=== PATIENT | male | born 1970 | race Caucasian/White ===

== ENCOUNTER 2017-08-23 13:53 | Emergency (ER) | payer SELFPAY ==
--- NOTE | 2017-08-23 16:14 | RAD ---
EXAM: CHEST 2 VIEWS: History Cough. COMPARISON: 05/06/15. FINDINGS: Normal cardiac silhouette. The pulmonary vessels and hilum are normal. No consolidation or mass. N o pneumothorax or osseous abnormalities. IMPRESSION: No acute cardiopulmonary process. POS: [facility]
[2017-08-23] MEDS ORDERED: Promethazine HCl 25 MG/ML VIAL ONE (16:33)
[2017-08-23] MEDS ORDERED: diphenhydrAMINE 50 MG/ML VIAL ONE (16:33)
[2017-08-23] MEDS ORDERED: Ketorolac Tromethamine 30 MG/ML VIAL ONE (17:08)
== END 2017-08-23 19:07 | disposition home or self-care (01) ==
LOC: ERS 13:53
DX: J40 Bronchitis, not specified as acute or chronic (principal); F17.210 Nicotine dependence, cigarettes, uncomplicated; F20.9 Schizophrenia, unspecified; F41.9 Anxiety disorder, unspecified; F31.9 Bipolar disorder, unspecified; G43.909 Migraine, unspecified, not intractable, without status migrainosus; I10 Essential (primary) hypertension; Z79.899 Other long term (current) drug therapy; Z86.73 Personal history of transient ischemic attack (TIA), and cerebral infarction without residual deficits
CPT/HCPCS: 71020; 96365; 96375; 99406; J1200; J1885; J2550

== ENCOUNTER 2017-10-22 00:57 | Emergency (ER) | payer SELFPAY ==
[2017-10-22 02:02] LABS: #Basophils 0.1 thou/uL (0.0-0.2); #Eosinphils 0.1 thou/uL (0.0-0.7); #Lymphocytes 2.7 thou/uL (1.20-3.40); #Monocytes 0.6 thou/uL (0.11-0.59); %Basophils 1.4 % (0.0-1.0); %Monocytes 7.8 % (0.0-10.0); %Neutrophils 53.8 % (42.0-75.0); Hemoglobin 13.5 g/dL (14.0-18.0); Mean Corpuscular HGB CONC 34.6 g/dL (32.0-36.0); Mean Corpuscular Hemoglobin 34.6 pg (27.0-31.0); Mean Corpuscular Volume 99.9 fl (80.0-94.0); Mean Platelet Volume 6.5 fL (7.4-10.4); Platelet Count 316 thou/uL (130-400); RBC Distribution Width 14.5 % (11.5-14.5); White Blood Cell (WBC) Count 7.5 thou/uL (4.8-10.8)
[2017-10-22 02:17] LABS: ALT (SGPT) 20 U/L (8-55); AST (SGOT) 15 U/L (5-34); Albumin 4.4 g/dL (3.5-5.0); Alkaline Phosphatase 103 U/L (40-150); Anion Gap 13 mmol/L (10-20); BUN (Urea Nitrogen) 8 mg/dL (8.9-20.6); Bilirubin, Total 0.2 mg/dL (0.2-1.2); Calc. Creatinine Clearance 0 mL/min (70-130); Calcium 9.5 mg/dL (7.8-10.44); Carbon Dioxide 26 mmol/L (22-29); Chloride 102 mmol/L (98-107); Estimated GFR-MDRD Greater than 90; Globulin 2.9 g/dL (2.4-3.5); Glucose 98 mg/dL (70-105); Potassium 3.7 mmol/L (3.5-5.1); Protein, Total 7.3 g/dL (6.0-8.3); Sodium 137 mmol/L (136-145)
[2017-10-22] MEDS ORDERED: Ketorolac Tromethamine 30 MG/ML VIAL ONE (04:24)
[2017-10-22] MEDS ORDERED: Dexamethasone 10 MG/ML VIAL ONE (04:24)
[2017-10-22] MEDS ORDERED: Metoclopramide HCl 10 MG/2 ML VIAL ONE (04:24)
--- NOTE | 2017-10-22 07:32 | CT ---
PRELIMINARY REPORT/[facility]/EMERGENCY AFTER HOURS PROCEDURE: EXAM: CT Head Without Intravenous Contrast CLINICAL HISTORY: 47 years old, male; Pain; Headache; Headache not specified; Patient HX: FELIX, non trauma TECHNIQUE: Axial computed tomography images of the head/brain without intravenous contrast. COMPARISON: No relevant prior studies available. FINDINGS: Brain: Mild volume loss No hemorrhage. No significant white matter disease. No edema. Ventricles: Unremarkable. No ventriculomegaly. Bones/joints: Unremarkable. No acute fracture. Soft tissues: Unremarkable. Sinuses: Unremarkable as visualized. No acute sinusitis. Mastoid air cells: Unremarkable as visualized. No mastoid effusion. IMPRESSION: No intracranial hemorrhage.Please see discussion above. Thank you for allowing us to participate in the care of your patient. Dictated and Authenticated by: Yair Cameron MD 10/22/2017 4:55 AM Central Time ([place] & [place]) FINAL REPORT EMERGENT AFTER HOURS CT OF THE BRAIN WITHOUT CONTRAST: COMPARISON: 02/13/17. FINDINGS/IMPRESSION: I agree with the findings and impression given in the preliminary report per [facility] physician. No evidence of acute intracranial abnormality. POS: [facility]
== END 2017-10-22 05:24 | disposition home or self-care (01) ==
LOC: ERS 00:57
DX: G43.909 Migraine, unspecified, not intractable, without status migrainosus (principal); I10 Essential (primary) hypertension; F41.9 Anxiety disorder, unspecified; F31.9 Bipolar disorder, unspecified; F20.9 Schizophrenia, unspecified; Z86.73 Personal history of transient ischemic attack (TIA), and cerebral infarction without residual deficits
CPT/HCPCS: 36415; 70450; 80053; 85025; 96374; 96375; J1100; J1885; J2765

== ENCOUNTER 2018-06-20 15:37 | Emergency (ER) | payer OTHER, SELFPAY ==
--- NOTE | 2018-06-20 16:21 | RAD ---
RIGHT KNEE 4 VIEWS: Date: 06/20/18 HISTORY: Fell with knee pain. FINDINGS: There are no signs of fracture or dislocation. No evidence of any significant joint effusion. If inte rnal derangement is clinically suspected, MRI would be recommended. Vascular calcifications are seen. IMPRESSION: No definite acute injury. POS: [facility]
[2018-06-20] MEDS ORDERED: Acetaminophen/Codeine 30-300mg Tablet ONE (17:31)
== END 2018-06-20 17:35 | disposition home or self-care (01) ==
LOC: ERS 15:37
DX: S83.91XA Sprain of unspecified site of right knee, initial encounter (principal); F31.9 Bipolar disorder, unspecified; F17.210 Nicotine dependence, cigarettes, uncomplicated; F20.9 Schizophrenia, unspecified; F41.9 Anxiety disorder, unspecified; I10 Essential (primary) hypertension; G43.909 Migraine, unspecified, not intractable, without status migrainosus; Z86.73 Personal history of transient ischemic attack (TIA), and cerebral infarction without residual deficits; Z79.899 Other long term (current) drug therapy; Z71.6 Tobacco abuse counseling; W01.0XXA Fall on same level from slipping, tripping and stumbling without subsequent striking against object, initial encounter

== ENCOUNTER 2019-05-17 12:22 | Observation (INO) | payer SELFPAY ==
[2019-05-17] MEDS ORDERED: methylPREDNISolone Sod Succ/PF 125 MG/2 ML VIAL ONE (12:31)
[2019-05-17] MEDS ORDERED: Famotidine/PF 20 mg/2ml Vial ONE (12:31)
[2019-05-17] MEDS ORDERED: diphenhydrAMINE 50 MG/ML VIAL ONE (12:31)
--- NOTE | 2019-05-17 12:49 | CT ---
CT HEAD WITHOUT IV CONTRAST COMPARISON: 10/22/2017 HISTORY: History of prior CVA as well as TIAs. Patient now has slurred speech and numbness. TECHNIQUE: Axial CT imaging at 5 mm intervals from vertex through skull base without contrast FINDINGS: Again noted is diminished attenuation in the periventricular white matter likely attributable to tubing mill setter moises small vessel ischemic changes which have not progressed from prior exam. There is no evidence of an acute infarction, hemorrhage, mass effect, or midline shift. The ventricular system is normal i n size, shape, and position. Visualized paranasal sinuses are clear. Osseous structures appear intact. There has been no interval change from prior exam. IMPRESSION: 1. No acute intracranial abnormality demonstrated. 2. Mild chronic small vessel ischemic changes. 3. Above findings discussed with Dr. Najera in the emergency department on 05/17/2019 at 1246 hours.
[2019-05-17 13:20] LABS: Mean Corpuscular HGB CONC 33.6 g/dL (32.0-36.0); Mean Corpuscular Volume 95.1 fL (78.0-98.0); Mean Platelet Volume 7.1 fL (7.4-10.4); Platelet Count 276 thou/uL (130-400); RBC Distribution Width 12.6 % (11.5-14.5); Red Blood Cell (RBC) Count 4.37 mill/uL (4.70-6.10); White Blood Cell (WBC) Count 4.6 thou/uL (4.8-10.8)
[2019-05-17 13:25] LABS: INR-International Normal Ratio 0.9; Prothrombin Time 12.1 SEC (12.0-14.7)
[2019-05-17 13:37] LABS: Acetaminophen Less than 6.0 mcg/mL (10.0-30.0); Alcohol Less than 10 mg/dL (Less than 10); Salicylate Less than 8.0 mg/dL (15.0-30.0)
[2019-05-17 13:39] LABS: Amphetamine Not Detected (NotDetected); Barbiturates Screen Not Detected (NotDetected); Benzodiazepine Screen Not Detected (NotDetected); Cocaine Metabolite Screen Not Detected (NotDetected); Medtox Control Line Valid? VALID (VALID); Medtox Reader # READER 1; Methadone Not Detected (NotDetected); Methamphetamine Not Detected (NotDetected); Opiate Screen Not Detected (NotDetected); Oxycodone Screen Not Detected (NotDetected); Phencyclidine (PCP) Not Detected (NotDetected); THC/Cannabinoid Screen Not Detected (NotDetected); Tricyclic Screen Not Detected (NotDetected)
[2019-05-17 13:39] LABS: ALT (SGPT) 14 U/L (8-55); AST (SGOT) 16 U/L (5-34); Albumin 4.6 g/dL (3.5-5.0); Alkaline Phosphatase 114 U/L (40-150); Anion Gap 15 mmol/L (10-20); BUN (Urea Nitrogen) 11 mg/dL (8.9-20.6); Bilirubin, Total 0.2 mg/dL (0.2-1.2); CK (CPK) 59 U/L (30-200); Calc. Creatinine Clearance 0 mL/min (70-130); Calcium 9.6 mg/dL (7.8-10.44); Carbon Dioxide 26 mmol/L (22-29); Chloride 97 mmol/L (98-107); Estimated GFR-MDRD 84; Glucose 81 mg/dL (70-105); Potassium 4.5 mmol/L (3.5-5.1); Protein, Total 7.6 g/dL (6.0-8.3); Sodium 133 mmol/L (136-145)
[2019-05-17 13:52] LABS: Band 3 % (5-11); Eosinophils 1 % (0-10); Lymphocytes 39 % (21-51); MDiff Complete? YES; Monocytes 6 % (0-10); Neutrophil 45 % (42-75); Platelet Morphology Comment Appears Adequate; Polychromasia SLIGHT = 2-3 cells (100X) (0-2/hpf); Reactive Lymphocytes 3 % (0-10)
[2019-05-17] MEDS ORDERED: cloNIDine 0.1 MG TAB ONE (14:06)
[2019-05-17] MEDS ORDERED: Metoclopramide HCl 10 MG/2 ML VIAL ONE (14:06)
[2019-05-17] MEDS ORDERED: Ketorolac Tromethamine 30 MG/ML VIAL ONE (14:06)
--- NOTE | 2019-05-17 14:38 | RAD ---
PORTABLE CHEST: HISTORY: Altered mental status, syncope. COMPARISON: 02/27/2015 study. FINDINGS: Heart size within normal limits considering the AP technique. Mediastinal structures are unremarkabl e. The lungs are clear of infiltrates. IMPRESSION: No active intrathoracic disease. POS: [facility]
--- NOTE | 2019-05-17 14:53 | CT ---
CT ANGIOGRAM BRAIN WITH AND WITHOUT IV CONTRAST AND 3D RECONSTRUCTIONS CT ANGIOGRAM NECK WITH IV CONTRAST AND 3D RECONSTRUCTIONS: HISTORY: Level II stroke activation. Patient with left-sided deficits including slurred speech and numbness. COMPARISON: CTA neck on 02/15/2017. FINDINGS: Minimal vascular calcifications are seen at the aortic arch. There is a normal arrangement of the gr eat vessels at the aortic arch which are patent. The bilateral common carotid arteries are patent. There are dense vascular calcifications present at the carotid artery bifurcations bilaterally. Dens e calcifications obscure the lumen involving the proximal left internal carotid artery, but there is focal stenosis of the right internal carotid artery which does appear progressed when compared to the prior study with the degree of narrowing appearing to be greater than 50%. There is also probably a t least 50% narrowing involving the proximal left internal carotid artery, but again a portion of the lumen is obscured due to dense vascular calcifications. There are patent bilateral vertebral arteries. The basilar artery is patent. Bilateral posterior cerebral arteries are also patent. Vascular calcifications are seen at the carotid siphons. The bilateral middle cerebral and anterior cerebral arteries are patent. No focal stenosis or branch occlusion is visualized. There is a small sacular aneurysm seen at the ACOM position on the left me asuring approximately 3 mm. IMPRESSION: 1. 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 2. Atherosclerotic plaque and calcifications at the carotid artery bifurcations and involving the pr oximal internal carotid arteries bilaterally with at least 50% narrowing present involving each proxi mal internal carotid artery. 3. Patent bilateral vertebral arteries. 4. The above findings were discussed with Dr. Najera in the emergency department on 05/17/2019 at 13 47 hours. POS: [facility]
[2019-05-17] MEDS ORDERED: Aspirin Chewable 81 MG TAB ONE (15:40)
[2019-05-17] MEDS ORDERED: Ondansetron ODT 4 MG TAB SL PRN (16:00)
[2019-05-17] MEDS ORDERED: Ondansetron PF 4 MG/2 ML Vial IVP PRN (16:00)
[2019-05-17] MEDS ORDERED: Acetaminophen 325 MG TAB PO PRN (16:00)
[2019-05-17] MEDS ORDERED: ISOVUE-370 76%-LOCM 1 ML ONE (16:33)
[2019-05-17 17:25] LABS: Lactic Acid 4.3 mmol/L (0.5-2.2)
[2019-05-17] MEDS: Sodium Chloride 0.9% 1,000 ML IV SCH (18:36)
--- NOTE | 2019-05-17 19:34 | HP ---
PRIMARY CARE PHYSICIAN: Maria E Tidwell PA-C and Ben Sinha MD. CHIEF COMPLAINT: Expressive aphasia and left-sided weakness. HISTORY OF PRESENT ILLNESS: A 48-year-old male patient with known history of prior CVAs with residual left-sided footdrop and numbness of distal limbs, bilateral carotid atherosclerosis, and hypertension, brought in by EMS due to acute onset of expressive aphasia associated with left-sided limb weakness and decreased sensation. The patient reportedly woke up today fine and had some coffee, following which, he reportedly developed acute onset of ill feeling associated with expressive aphasia, stuttering, and left-sided limb weakness as well as numbness and tingling from neck down. He also reported some spinning sensation and generalized ill feeling. This started around 10:30 a.m. and EMS was called. The patient was treated with sublingual nitroglycerin by EMS as he was found to have markedly elevated blood pressure with systolic blood pressure above 200. On arrival to the ER, blood pressure was down to 172 systolic. The patient soon reported improvement of both slurred speech, stuttering, and numbness. By the time, the patient presented to the floor, he reported that he is back to baseline. He admitted to some nausea, which however had some chronic component. He also admitted to distal left lower extremity from knee down and distal upper limb from an elbow down numbness. The patient with prior history of substance abuse. Denied recreational drug use. He also denied chest pain or shortness of breath. In the ER, the patient also received aspirin 324 mg, clonidine 0.2 mg, ketorolac injection, Reglan, and prednisone as well as Pepcid and diphenhydramine. He also reported difficulty urinating and admitted to hesitancy, intermittency, dribbling, and poor stream. Of note, the patient had Mcdonough catheter placement during prior hospitalization. The patient told ER physician that he had headache last night, but this was not expressed to me. He also told the EMS that he had bilateral weakness in his upper limbs, but he told me that the power in the right side of the body was normal and stayed normal through this episode. PAST MEDICAL HISTORY: 1. Prior CVA with residual left-sided footdrop. 2. Carotid atherosclerosis bilaterally. 3. Bipolar disorder. 4. History of drug abuse. 5. Migraine headaches. 6. Dyslipidemia. 7. Hypertension. 8. Tobacco abuse disorder. PAST SURGICAL HISTORY: 1. Appendectomy. 2. Eye surgery. 3. Psychiatric history. 4. Anxiety. 5. Bipolar disorder. 6. Depression. 7. schizoaffective disorder. FAMILY HISTORY: Significant for stroke in mother, who has had 2 strokes. Father from Hodgkin lymphoma. SOCIAL HISTORY: The patient lives with mother. Admitted to cigarette smoking, told me he smokes 1-1/2 packs per day. Review of history showed the patient used to smoke 2 to 3 packs for several years. He is a former drug user, using amphetamine and heroin, but denied current use. ALLERGIES: THE PATIENT REPORTS ALLERGY AND INTOLERANCE TO THE FOLLOWING; 1. ERYTHROMYCIN. 2. FISH PRODUCTS. 3. FISH OIL. 4. IODINE. 5. PENICILLIN. 6. SULFA. 7. TETRACYCLINE. HOME MEDICATIONS: This has not been verified, but review of the records showed the patient is on; 1. Tegretol 200 mg p.o. daily. 2. Depakote 500 mg t.i.d. 3. Lisinopril 10 mg p.o. b.i.d. 4. Remeron 30 mg p.o. daily at bedtime. 5. Pentazocine/naloxone one tablet daily. 6. Aspirin-dipyridamole (Aggrenox 1 capsule p.o. b.i.d.). 7. Lipitor 40 mg p.o. daily at bedtime. 8. Meclizine 12.5 mg p.o. b.i.d. p.r.n. for vertigo. REVIEW OF SYSTEMS: Twelve-point review of system performed was negative other than pertinent positives and negatives included in the history of present illness. PHYSICAL EXAMINATION: VITAL SIGNS: Initial vitals on presentation to the ER showed BP of 172/122, pulse 90, respiratory rate 20, temperature 97.8, SpO2 96% on room air. Most recent vitals showed BP 139/91, SpO2 97% on room air respiratory rate 18. GENERAL: Young male, in no obvious distress. Afebrile. Anicteric. Acyanotic. HEENT: Normocephalic, atraumatic. Pupils are reacting to light. Oral mucosa is moist. NECK: Full, soft, nontender, nondistended with full range of motion. No masses appreciated. CARDIOVASCULAR: Regular rhythm and rate. Normal heart sounds one and two. RESPIRATORY: Good air entry bilateral with few transmitted sounds. No obvious crackle or use of accessory muscles appreciated. GI: Full, soft, nontender, nondistended with normal bowel sounds. EXTREMITIES: Grossly normal looking, atraumatic with no edema, erythema, or cyanosis. Distal pulses are palpable. NEUROLOGIC: Conscious, alert, oriented x3 with appropriate mental status. The patient is conversational with good train of thought. No slurred speech or stuttering was appreciated. Cranial nerves 2 through 12 are grossly intact. The patient moves all extremities with. Power however is decreased on the left side to 4/5 while power is 5/5 on the right side. Left footdrop also is noted. Sensation to gross touch is normal on the right side, but subjectively decreased on the distal aspect of both upper and lower extremities. Sensation is grossly intact on the face. DIAGNOSTIC DATA: CBC showed WBC count of 4.6, hemoglobin of 14.0, MCV of 95.1, and platelet of 276. Coagulation panel showed PT 12.1, INR 0.9, PTT 25. CMP showed sodium 133, potassium 4.5, chloride 97, CO2 26, BUN 11, creatinine 0.9, glucose 81, calcium 9.6, total bilirubin 0.2, AST 16, ALT 14, alkaline phosphatase 114, total protein 7.6, albumin 4.6, globulin 3.0. Cardiac markers showed troponin less than 0.01 and CK 59. Lactic acid initially was 3.0, but repeat 3 hours later was 4.3. Toxicology screen showed less than 8.0 salicylate, less than 6.0 acetaminophen, and less than 10 alcohol. Urine drug screen was unremarkable. Negative for opioids, methamphetamine, and heroin. EKG showed normal sinus rhythm with rate of 89. No obvious acute ischemic changes noted. CT scan of the brain showed no acute intracranial abnormality. However, mild chronic small-vessel ischemic changes were noted. CT angio of the head and neck showed small anterior communicating artery aneurysm on the left measuring 3 mm. The atherosclerotic plaque and calcification at the carotid artery bifurcation and involving the proximal internal carotid arteries bilaterally with at least 50% narrowing present involving each proximal internal carotid arteries. Both vertebral arteries are patent. Chest x-ray showed normal heart size with unremarkable mediastinal structures. Lungs are clear of infiltrates. ASSESSMENT: 1. Transient ischemic attack: The patient with prior history of cerebrovascular accident and significant bilateral carotid atherosclerosis, had acute onset of left-sided weakness, stuttering, expressive aphasia, and numbness, which has improved and the patient reports he is back to baseline currently. Evaluation with CT scan of the brain as well as CT angio showed no acute finding, though, significant bilateral hemodynamically significant carotid atherosclerosis noted. 2. Hypertension. 3. Tobacco abuse disorder. 4. Prior cerebrovascular accident with residual left-sided weakness and sensory loss. 5. Left footdrop. 6. Lactic acidosis: Etiology is unclear. Dehydration is a concern given associated hyponatremia and mild elevation in creatinine compared to baseline. 7. Presumed dehydration. PLAN: 1. Admit the patient to stroke floor. Start neuro checks as per protocol. 2. Start normal saline at 100 mL/hour. 3. Recheck lactic acid in 4 hours with IV fluid therapy. 4. Follow serial troponin to rule out acute myocardial infarction. 5. PT/OT and Speech to evaluate and treat. 6. We will also get echocardiogram of the heart to assess cardiac function and to rule out any clot. 7. Diet as tolerated. 8. It is anticipated that the patient will be hospitalized for less than 2 midnights. Code status' full code. The patient's mother is the surrogate decision maker. Job ID: [id number]
[2019-05-17 20:52] VITALS: BMI 26.3
[2019-05-17] MEDS ORDERED: Tamsulosin HCl 0.4 MG CAP PO SCH (21:00)
[2019-05-17] MEDS ORDERED: Atorvastatin Calcium 40 MG TAB PO SCH (21:00)
[2019-05-17 23:09] LABS: Lactic Acid 2.9 mmol/L (0.5-2.2)
[2019-05-17 23:17] LABS: Troponin I Less than 0.010 ng/mL (< 0.028)
[2019-05-18] MEDS: Sodium Chloride 0.9% 1,000 ML IV SCH ×2 (05:02→13:28)
--- NOTE | 2019-05-18 05:15 | PDOC.EVN ---
Event Note - Event Note Event Note: RN called - Patient is refusing labs this AM
[2019-05-18] MEDS ORDERED: Clopidogrel Bisulfate 75 MG TAB PO SCH (09:00)
[2019-05-18] MEDS ORDERED: Nicotine 21 MG PATCH TD SCH (09:00)
[2019-05-18] MEDS ORDERED: Enoxaparin Sodium 40 MG/0.4 ML SYRINGE SC SCH (09:00)
[2019-05-18] MEDS ORDERED: Aspirin 325 mg Enteric Coated Tablet PO SCH (09:00)
[2019-05-18 09:03] LABS: Bacteria/HPF None Seen HPF (None Seen); Bilirubin Negative (Negative); Blood, Urine Negative (Negative); Clarity Clear (Clear); Glucose, Urine (Dipstick) Normal (Negative); Leukocyte Negative Leu/uL (Negative); Nitrite Negative (Negative); Protein, Urine (Dipstick) Negative (Neg-Trace); RBC/HPF 0-3 HPF (0-3); Squamous Epithelial None Seen HPF (0-3); Urobilinogen Normal mg/dL (Less than 2); WBC/HPF 0-3 HPF (0-3)
[2019-05-18 09:04] LABS: Anion Gap 13 mmol/L (10-20); BUN (Urea Nitrogen) 12 mg/dL (8.9-20.6); Calc. Creatinine Clearance 139 mL/min (70-130); Calcium 8.1 mg/dL (7.8-10.44); Carbon Dioxide 23 mmol/L (22-29); Cardiac Risk 5.7 (Less than 4.5); Chloride 99 mmol/L (98-107); Cholesterol 251 mg/dl (< 200 Desired); Estimated GFR-MDRD Greater than 90; Glucose 127 mg/dL (70-105); HDL Cholesterol 44 mg/dL (>60 Neg Risk); LDL Cholesterol, Calculated 159 mg/dL; Potassium 3.5 mmol/L (3.5-5.1); Sodium 131 mmol/L (136-145); Triglycerides 242 mg/dL (Less than 150)
[2019-05-18 09:04] LABS: Urine Culture Reflex No No
[2019-05-18 15:29] VITALS: BP 149/84; TEMP 98.3
--- NOTE | 2019-05-20 15:28 | DIS ---
DATE OF ADMISSION: 05/17/2019 DATE OF DISCHARGE: 05/18/2019 PRIMARY CARE PHYSICIAN: Maria E Tidwell PA-C DISCHARGE DIAGNOSES: 1. Transient ischemic attack. 2. Hypertension. 3. Tobacco abuse disorder. 4. Polysubstance abuse, on treatment. 5. Prior cerebrovascular accident with residual left-sided weakness. 6. Chronic left footdrop. 7. Lactic acidosis. HOSPITAL COURSE: A 48-year-old male patient with known history of prior CVA with residual left-sided weakness and footdrop, known history of bilateral carotid atherosclerosis and hypertension, admitted due to acute onset of expressive aphasia associated with left-sided limb weakness and decreased sensation. The patient was found to be hypertensive on presentation to the ER and was treated with sublingual nitroglycerin with improvement in blood pressure. Soon, expressive aphasia and left-sided weakness started to improve such that by the time I saw the patient, he was almost 80% back to normal. The patient was admitted to the medical floor, to the stroke unit and monitored with neuro checks and by the following morning, mental status and neurological examination have resolved and the patient was back to baseline. There was a concern about aortic aneurysm and the patient was evaluated with CT angio of the head and neck as well as CT scan of the brain, which were all unremarkable. The patient however was found to have elevated lactic acid of 3.0 on presentation, which increased to 4.3, three hours later. Initially, this was felt to be due to dehydration, then with IV fluid therapy the lactic went down to 3.0. On further questioning, it turned out that the patient is on some medications, pentazocine, naloxone, Tegretol, and Depakote, which all can lead to lactic acidosis. The patient remained at baseline with no symptoms and was subsequently discharged. Echocardiogram was obtained, but preliminary reading of it was unremarkable and the patient was advised to follow up with PCP as well as with vascular surgeon for further evaluation of bilateral carotid atherosclerosis. PHYSICAL EXAMINATION: VITAL SIGNS: Temperature 98.3, pulse 98, respiratory rate 18, SpO2 of 98 on room air, and blood pressure is 149/84. GENERAL: Young male, in no distress. Afebrile. Anicteric. Acyanotic. HEENT: Normocephalic and atraumatic. Oral mucosa is moist. CARDIOVASCULAR: Regular rhythm and rate with normal heart sounds 1 and 2. RESPIRATORY: Good air entry bilaterally with some transmitted sounds. No obvious crackle or rhonchi was appreciated. GI: Full, soft, nontender, and nondistended with normal bowel sounds. EXTREMITIES: Grossly normal looking, atraumatic with no edema, erythema, or cyanosis. NEUROLOGIC: Conscious and alert and oriented x3 with appropriate mental status. Cranial nerves 2 through 12 are grossly intact. The patient is ambulant with left footdrop gait. Power is 5/5 in right limbs and 5-/5 left limbs. DISCHARGE DISPOSITION: Home. DISCHARGE CONDITION: Improved to baseline. DISCHARGE MEDICATIONS: See discharge med rec. Job ID: [id number]
--- NOTE | 2019-05-25 11:26 | EKG ---
Test Reason : STROKE ALERT Blood Pressure : / mmHG Vent. Rate : 089 BPM Atrial Rate : 089 BPM P-R Int : 138 ms QRS Dur : 104 ms QT Int : 390 ms P-R-T Axes : 003 -01 024 degrees QTc Int : 474 ms Normal sinus rhythm Inferior infarct , age undetermined Abnormal ECG Confirmed by ALPHONSO FARRELL D.O. ([id number]), commissioning editor YENI QUINTEROS ([id number]) on 05/25/2019 11:26:35 AM Referred By: Confirmed By:ALPHONSO FARRELL D.O.
== END 2019-05-18 17:27 | disposition home or self-care (01) ==
LOC: ERS 12:22 → 2SE 14:08
PROVIDERS: ADMIT Internal Medicine Nephrology; ATTEND Internal Medicine Nephrology
DX: G45.9 Transient cerebral ischemic attack, unspecified (principal); I10 Essential (primary) hypertension; I69.954 Hemiplegia and hemiparesis following unspecified cerebrovascular disease affecting left non-dominant side; E87.2 Acidosis; E78.5 Hyperlipidemia, unspecified; F31.9 Bipolar disorder, unspecified; F17.210 Nicotine dependence, cigarettes, uncomplicated; G43.709 Chronic migraine without aura, not intractable, without status migrainosus; Z88.0 Allergy status to penicillin; Z88.1 Allergy status to other antibiotic agents; Z88.2 Allergy status to sulfonamides; Z88.8 Allergy status to other drugs, medicaments and biological substances; Z91.013 Allergy to seafood; Z91.041 Radiographic dye allergy status; Z79.82 Long term (current) use of aspirin; Z79.899 Other long term (current) drug therapy
CPT/HCPCS: 36415; 36416; 70450; 70496; 70498; 71045; 80048; 80053; 80061; 80306; 80307; 81001; 82550; 83605; 84484; 85025; 85610; 85730; 93005; 93306; 96361; 96372; 96374; 96375; G0378; J1200; J1650; J1885; J2765; J2930; Q9966; S0028

== ENCOUNTER 2020-04-29 13:35 | Emergency (ER) | payer SELFPAY ==
[2020-04-29] MEDS ORDERED: Ondansetron PF 4 MG/2 ML Vial ONE (14:12)
[2020-04-29] MEDS ORDERED: Labetalol HCl 100 MG/20 ML VIAL ONE (14:13)
--- NOTE | 2020-04-29 14:13 | CT ---
CT Brain WO Con: 04/29/2020 1:58 PM CLINICAL HISTORY: Syncopal episode. IMAGING TECHNIQUE: Multiple CT images were obtained of the brain without IV contrast. COMPARISON: Prior exam dated May 17, 2019 FINDINGS: BRAIN: Evidence of acute infarct: None. Evidence of chronic ischemic change:There is stable mild chronic small vessel white matter ischemic c hange. Evidence of intracranial hemorrhage: None. Evidence of midline shift: Third ventricle and septum pellucidum are midline. Ventricles: Normal. No hydrocephalus. SKULL: Intact. VISUALIZED PARANASAL SINUSES: Clear. MASTOID AIR CELLS: Clear. EXTRACRANIAL SOFT TISSUES: Normal. IMPRESSION: No acute intracranial abnormality.
[2020-04-29 14:19] LABS: #Basophils 0.1 thou/uL (0.0-0.2); #Eosinphils 0.1 thou/uL (0.0-0.7); #Lymphocytes 1.8 thou/uL (1.20-3.40); #Monocytes 0.4 thou/uL (0.11-0.59); #Neutrophils 3.1 thou/uL (1.40-6.50); %Lymphocytes 33.3 % (21.0-51.0); %Monocytes 7.2 % (0.0-10.0); %Neutrophils 57.5 % (42.0-75.0); Hemoglobin 13.5 g/dL (14.0-18.0); Mean Corpuscular HGB CONC 34.8 g/dL (32.0-36.0); Mean Corpuscular Hemoglobin 33.4 pg (27.0-31.0); Mean Corpuscular Volume 96.1 fL (78.0-98.0); Mean Platelet Volume 6.9 fL (7.4-10.4); Platelet Count 290 thou/uL (130-400); RBC Distribution Width 12.9 % (11.5-14.5); Red Blood Cell (RBC) Count 4.05 mill/uL (4.70-6.10); White Blood Cell (WBC) Count 5.4 thou/uL (4.8-10.8)
--- NOTE | 2020-04-29 14:27 | RAD ---
PORTABLE CHEST: Date: 04/29/2020 HISTORY: Syncope. COMPARISON: 05/17/2019. FINDINGS: The lungs appear clear of infiltrate. No evidence of vascular congestion. Heart and mediastinum unrem arkable. IMPRESSION: No acute process identified. POS: [facility]
[2020-04-29 14:44] LABS: Alcohol Less than 10 mg/dL (Less than 10); Salicylate Less than 8.0 mg/dL (15.0-30.0)
[2020-04-29 14:46] LABS: ALT (SGPT) 17 U/L (8-55); AST (SGOT) 12 U/L (5-34); Albumin 4.4 g/dL (3.5-5.0); Alkaline Phosphatase 124 U/L (40-110); Anion Gap 13 mmol/L (10-20); BUN (Urea Nitrogen) 12 mg/dL (8.9-20.6); Bilirubin, Total 0.2 mg/dL (0.2-1.2); Calc. Creatinine Clearance 0 mL/min (70-130); Calcium 8.9 mg/dL (7.8-10.44); Carbon Dioxide 28 mmol/L (22-29); Chloride 101 mmol/L (98-107); Estimated GFR-MDRD Greater than 90; Globulin 2.9 g/dL (2.4-3.5); Glucose 84 mg/dL (70-105); Potassium 3.7 mmol/L (3.5-5.1); Protein, Total 7.3 g/dL (6.0-8.3); Sodium 138 mmol/L (136-145)
[2020-04-29 14:50] LABS: Bilirubin Negative (Negative); Blood, Urine Negative (Negative); Clarity Clear (Clear); Glucose, Urine (Dipstick) Normal (Negative); Ketone, Urine Negative (Negative); Leukocyte Negative Leu/uL (Negative); Nitrite Negative (Negative); Protein, Urine (Dipstick) Negative (Neg-Trace); Specific Gravity, Urine 1.025 (1.002-1.036); Urobilinogen Normal mg/dL (Less than 2)
[2020-04-29] MEDS ORDERED: Acetaminophen 500 MG TAB ONE (14:55)
[2020-04-29 15:02] LABS: Amphetamine Not Detected (NotDetected); Barbiturates Screen Not Detected (NotDetected); Benzodiazepine Screen Detected (NotDetected); Cocaine Metabolite Screen Not Detected (NotDetected); Medtox Reader # READER 4; Methadone Not Detected (NotDetected); Methamphetamine Not Detected (NotDetected); Opiate Screen Not Detected (NotDetected); Oxycodone Screen Not Detected (NotDetected); Phencyclidine (PCP) Not Detected (NotDetected); THC/Cannabinoid Screen Not Detected (NotDetected); Tricyclic Screen Not Detected (NotDetected)
[2020-04-29 15:03] LABS: Medtox Control Line Valid? VALID (VALID)
== END 2020-04-29 15:50 | disposition home or self-care (01) ==
LOC: ERS 13:35
DX: R55 Syncope and collapse (principal); I10 Essential (primary) hypertension; F41.9 Anxiety disorder, unspecified; F31.9 Bipolar disorder, unspecified; G43.909 Migraine, unspecified, not intractable, without status migrainosus; F20.9 Schizophrenia, unspecified; F17.210 Nicotine dependence, cigarettes, uncomplicated
CPT/HCPCS: 70450; 71045; 80053; 80306; 80307; 81003; 84484; 85025; 93005; 96361; 96374; 96375; J2405

== ENCOUNTER 2021-01-10 16:14 | Emergency (ER) | payer SELFPAY ==
[2021-01-10 18:29] LABS: #Basophils 0.1 thou/uL (0.0-0.2); #Eosinphils 0.1 thou/uL (0.0-0.7); #Lymphocytes 2.9 thou/uL (1.20-3.40); #Monocytes 0.9 thou/uL (0.11-0.59); #Neutrophils 5.4 thou/uL (1.40-6.50); %Basophils 1.3 % (0.0-1.0); %Eosinophils 0.9 % (0.0-10.0); %Lymphocytes 31.2 % (21.0-51.0); %Monocytes 9.8 % (0.0-10.0); %Neutrophils 56.9 % (42.0-75.0); Hemoglobin 14.1 g/dL (14.0-18.0); Mean Corpuscular HGB CONC 34.4 g/dL (32.0-36.0); Mean Corpuscular Hemoglobin 34.4 pg (27.0-31.0); Mean Platelet Volume 6.5 fL (7.4-10.4); Platelet Count 414 thou/uL (130-400); RBC Distribution Width 12.9 % (11.5-14.5); White Blood Cell (WBC) Count 9.4 thou/uL (4.8-10.8)
[2021-01-10] MEDS ORDERED: Acetaminophen 500 MG TAB ONE (18:31)
[2021-01-10] MEDS ORDERED: diphenhydrAMINE 50 MG/ML VIAL ONE (18:31)
[2021-01-10] MEDS ORDERED: Metoclopramide HCl 10 MG/2 ML VIAL ONE (18:31)
[2021-01-10 18:58] LABS: ALT (SGPT) 34 U/L (8-55); AST (SGOT) 22 U/L (5-34); Albumin 4.3 g/dL (3.5-5.0); Alkaline Phosphatase 115 U/L (40-110); Anion Gap 15 mmol/L (10-20); BUN (Urea Nitrogen) 10 mg/dL (8.9-20.6); Bilirubin, Total 0.2 mg/dL (0.2-1.2); Calc. Creatinine Clearance 0 mL/min (70-130); Calcium 9.2 mg/dL (7.8-10.44); Carbon Dioxide 26 mmol/L (22-29); Chloride 98 mmol/L (98-107); Globulin 3.5 g/dL (2.4-3.5); Glucose 81 mg/dL (70-105); Potassium 4.4 mmol/L (3.5-5.1); Protein, Total 7.8 g/dL (6.0-8.3); Sodium 135 mmol/L (136-145)
[2021-01-10] MEDS ORDERED: methylPREDNISolone Sod Succ/PF 125 MG/2 ML VIAL ONE (20:05)
[2021-01-10] MEDS ORDERED: Magnesium 2 GM/50 ML BAG (IN WATER) ONE (20:05)
== END 2021-01-10 20:46 | disposition home or self-care (01) ==
LOC: ERS 16:14
DX: R51.9 Headache, unspecified (principal); R55 Syncope and collapse; I10 Essential (primary) hypertension; F17.210 Nicotine dependence, cigarettes, uncomplicated; Z86.73 Personal history of transient ischemic attack (TIA), and cerebral infarction without residual deficits; Z79.899 Other long term (current) drug therapy
CPT/HCPCS: 70450; 80053; 84484; 85025; 93005; 96365; 96367; 96375; J1200; J2765; J2930; J3475

== ENCOUNTER 2021-06-30 20:00 | Emergency (ER) | payer SELFPAY ==
[2021-06-30 22:16] LABS: #Basophils 0.1 thou/uL (0.0-0.2); #Eosinphils 0.1 thou/uL (0.0-0.7); #Lymphocytes 2.5 thou/uL (1.20-3.40); #Monocytes 0.7 thou/uL (0.11-0.59); #Neutrophils 4.6 thou/uL (1.40-6.50); %Basophils 1.1 % (0.0-1.0); %Eosinophils 1.7 % (0.0-10.0); %Lymphocytes 30.9 % (21.0-51.0); %Monocytes 9.1 % (0.0-10.0); %Neutrophils 57.2 % (42.0-75.0); Hemoglobin 14.6 g/dL (14.0-18.0); Mean Corpuscular Hemoglobin 34.3 pg (27.0-31.0); Mean Corpuscular Volume 98.1 fL (78.0-98.0); Mean Platelet Volume 7.1 fL (7.4-10.4); Platelet Count 304 thou/uL (130-400); RBC Distribution Width 12.7 % (11.5-14.5); Red Blood Cell (RBC) Count 4.26 mill/uL (4.70-6.10)
[2021-06-30 22:35] LABS: ALT (SGPT) 36 U/L (8-55); AST (SGOT) 24 U/L (5-34); Albumin 4.4 g/dL (3.5-5.0); Alkaline Phosphatase 116 U/L (40-110); Anion Gap 14 mmol/L (10-20); BUN (Urea Nitrogen) 13 mg/dL (8.4-25.7); Bilirubin, Total 0.2 mg/dL (0.2-1.2); Calc. Creatinine Clearance 0 mL/min (70-130); Calcium 9.5 mg/dL (7.8-10.44); Carbon Dioxide 27 mmol/L (22-29); Chloride 100 mmol/L (98-107); Globulin 3.2 g/dL (2.4-3.5); Glucose 88 mg/dL (70-105); Potassium 4.1 mmol/L (3.5-5.1); Protein, Total 7.6 g/dL (6.0-8.3); Sodium 137 mmol/L (136-145)
[2021-06-30] MEDS ORDERED: Ketorolac Tromethamine 30 MG/ML VIAL ONE (23:02)
[2021-06-30] MEDS ORDERED: Promethazine HCl 25 MG/ML VIAL ONE (23:02)
[2021-06-30 23:21] LABS: Bilirubin Negative (Negative); Blood, Urine Negative (Negative); Clarity Clear (Clear); Glucose, Urine (Dipstick) Normal (Negative); Ketone, Urine Negative (Negative); Leukocyte Negative Leu/uL (Negative); Nitrite Negative (Negative); Protein, Urine (Dipstick) Negative (Neg-Trace); Specific Gravity, Urine 1.012 (1.002-1.036); Urobilinogen Normal mg/dL (Less than 2); pH, Urine 6.5 (5.0-9.0)
[2021-06-30 23:39] LABS: SARS-CoV-2 NAA Rapid Test Not Detected (NotDetected)
[2021-07-01] MEDS ORDERED: Acetaminophen 500 MG TAB ONE (00:36)
[2021-07-01] MEDS ORDERED: Metoclopramide HCl 10 MG/2 ML VIAL ONE (00:37)
[2021-07-01] MEDS ORDERED: diphenhydrAMINE 50 MG/ML VIAL ONE (00:37)
== END 2021-07-01 01:10 | disposition home or self-care (01) ==
LOC: ERS 20:00
DX: S39.012A Strain of muscle, fascia and tendon of lower back, initial encounter (principal); G43.909 Migraine, unspecified, not intractable, without status migrainosus; I10 Essential (primary) hypertension; F17.210 Nicotine dependence, cigarettes, uncomplicated; Z86.73 Personal history of transient ischemic attack (TIA), and cerebral infarction without residual deficits; Z79.899 Other long term (current) drug therapy
CPT/HCPCS: 0240U; 36415; 71045; 80053; 81003; 84484; 85025; 93005; 96365; 96375; J1200; J1885; J2550; J2765

== ENCOUNTER 2022-05-30 08:16 | Emergency (ER) | payer OTHER | END 2022-05-30 09:35 | disposition home or self-care (01) | LOC: ERS 08:16 | DX: T23.001A Burn of unspecified degree of right hand, unspecified site, initial encounter (principal); Z86.73 Personal history of transient ischemic attack (TIA), and cerebral infarction without residual deficits; F17.210 Nicotine dependence, cigarettes, uncomplicated; X00.0XXA Exposure to flames in uncontrolled fire in building or structure, initial encounter; Z79.899 Other long term (current) drug therapy | CPT/HCPCS: 99283 ==

== ENCOUNTER 2023-11-01 03:50 | Inpatient (IN) | payer OTHER ==
[2023-11-01] MEDS ORDERED: diphenhydrAMINE 50 MG/ML VIAL ONE (03:55)
[2023-11-01] MEDS ORDERED: methylPREDNISolone Sod Succ 40 MG VIAL ONE (03:55)
[2023-11-01] MEDS ORDERED: Famotidine/PF 20 mg/2ml Vial ONE (03:56)
[2023-11-01] MEDS ORDERED: EPINEPHrine 1 MG/ML VIAL ONE (04:04)
[2023-11-01] MEDS ORDERED: Aspirin Chewable 81 MG TAB ONE (04:37)
[2023-11-01] MEDS ORDERED: Lisinopril 20 MG TAB ONE (04:59)
[2023-11-01 05:16] LABS: #Eosinphils 0.2 thou/uL (0.0-0.7); #Monocytes 0.4 thou/uL (0.11-0.59); %Basophils 0.6 % (0.0-1.0); %Eosinophils 2.3 % (0.0-10.0); %Lymphocytes 20.5 % (21.0-51.0); %Monocytes 5.3 % (0.0-10.0); %Neutrophils 70.7 % (42.0-75.0); Hematocrit 41.7 % (42.0-52.0); Hemoglobin 14.1 g/dL (14.0-18.0); Mean Corpuscular HGB CONC 33.8 g/dL (32.0-36.0); Mean Corpuscular Hemoglobin 32.8 pg (27.0-31.0); Mean Platelet Volume 9.7 fL (7.4-10.4); Platelet Count 290 10x3/uL (130-400); RBC Distribution Width 12.7 % (11.5-14.5)
[2023-11-01 05:37] LABS: PTT 28.5 sec (22.9-36.1); Prothrombin Time 12.7 sec (12.0-14.7)
[2023-11-01 05:39] LABS: ALT (SGPT) 18 U/L (8-55); AST (SGOT) 16 U/L (5-34); Albumin 4.3 g/dL (3.5-5.0); Alkaline Phosphatase 103 U/L (40-110); Anion Gap 9 mmol/L (10-20); BUN (Urea Nitrogen) 9 mg/dL (8.4-25.7); Bilirubin, Total 0.5 mg/dL (0.2-1.2); Calc. Creatinine Clearance 0 mL/min (70-130); Calcium 9.3 mg/dL (7.8-10.44); Carbon Dioxide 31 mmol/L (22-29); Chloride 101 mmol/L (98-107); Estimated GFR 97; Glucose 127 mg/dL (70-105); Magnesium 2.1 mg/dL (1.6-2.6); Potassium 3.8 mmol/L (3.5-5.1); Protein, Total 7.3 g/dL (6.0-8.3); Sodium 137 mmol/L (136-145)
[2023-11-01 05:42] LABS: Troponin I Less than 0.010 ng/mL (< 0.028)
[2023-11-01 06:09] LABS: SARS-CoV-2 NAA Rapid Test DETECTED (NotDetected)
[2023-11-01] MEDS ORDERED: Ondansetron PF 4 MG/2 ML Vial IVP PRN (06:30)
[2023-11-01] MEDS ORDERED: Acetaminophen 325 MG TAB PO PRN ×2 (06:30→08:02)
[2023-11-01 07:41] VITALS: BMI 18.4
[2023-11-01] MEDS ORDERED: Senokot S 8.6-50 MG TAB PO PRN ×2 (08:02→12:45)
[2023-11-01] MEDS ORDERED: Calcium Carbonate 500 MG ChewTAB PO PRN (08:02)
[2023-11-01] MEDS ORDERED: Pentazocine HCl/Naloxone HCl 50/0.5 MG TAB PO PRN (08:07)
[2023-11-01] MEDS ORDERED: Non-Formulary Item 1 EACH (Hydroxyzine Hcl [Hydroxyzine Hcl] 50 MG Tablet) PO PRN (08:07)
[2023-11-01] MEDS ORDERED: LORazepam 2 MG/ML SYR.(CARPUJECT) IVP SCH (08:15)
[2023-11-01 08:38] LABS: Acetaminophen Less than 10 mcg/mL (10.0-30.0); Alcohol Less than 10.0 mg/dL (Less than 10); CRP (Inflammatory) Less than 0.50 mg/dL (= or < 0.5); Salicylate Less than 8.0 mg/dL (15.0-30.0)
[2023-11-01 08:45] LABS: Troponin I Less than 0.010 ng/mL (< 0.028)
[2023-11-01] MEDS ORDERED: Lisinopril 10 MG TAB PO SCH (09:00)
[2023-11-01] MEDS ORDERED: Acetaminophen 325 MG TAB ONE (09:15)
[2023-11-01] MEDS ORDERED: carBAMazepine 200 MG TAB PO SCH (09:15)
[2023-11-01] MEDS ORDERED: Ondansetron ODT 4 MG TAB ONE (09:16)
[2023-11-01] MEDS: Ondansetron ODT 4 MG TAB SL PRN ×2 (09:22→16:47)
[2023-11-01] MEDS ORDERED: Iopamidol 370 76% 100 ML VIAL ONE (09:34)
[2023-11-01] MEDS ORDERED: Enoxaparin 40 MG (0.4 mL) SYRINGE ONE (11:29)
[2023-11-01] MEDS: Enoxaparin 40 MG (0.4 mL) SYRINGE SC SCH (11:34)
[2023-11-01] MEDS: Divalproex Sodium DR 500 MG TAB PO SCH ×3 (11:34→21:51)
[2023-11-01] MEDS: Nicotine 21 MG PATCH TD SCH (11:35)
[2023-11-01 11:41] LABS: Troponin I Less than 0.010 ng/mL (< 0.028)
[2023-11-01] MEDS: carBAMazepine 200 MG TAB PO SCH (16:47)
[2023-11-01] MEDS ORDERED: MIRTAZAPINE 45 MG PO SCH (21:00)
[2023-11-01] MEDS: Lisinopril 10 MG TAB PO SCH (21:51)
[2023-11-01] MEDS: Atorvastatin Calcium 40 MG TAB PO SCH (21:51)
[2023-11-01] MEDS: Tamsulosin HCl 0.4 MG CAP PO SCH (21:53)
[2023-11-02] MEDS ORDERED: Heparin 5,000 UNITS/ML VIAL ONE (06:42)
[2023-11-02] MEDS ORDERED: EPINEPHrine 1 MG/ML VIAL ONE (06:42)
[2023-11-02] MEDS ORDERED: Bupivacaine PF 0.5% 30 ML VIAL ONE (06:43)
[2023-11-02] MEDS ORDERED: PROPOFOL 20 ML ONE (06:45)
[2023-11-02] MEDS ORDERED: Lidocaine 1% MPF 2 ML VIAL ONE (06:52)
[2023-11-02 07:05] LABS: #Basophils 0.1 thou/uL (0.0-0.2); #Eosinphils 0.1 thou/uL (0.0-0.7); #Monocytes 0.9 thou/uL (0.11-0.59); #Neutrophils 6.5 thou/uL (1.40-6.50); %Basophils 0.5 % (0.0-1.0); %Eosinophils 0.7 % (0.0-10.0); %Lymphocytes 28.6 % (21.0-51.0); %Monocytes 8.2 % (0.0-10.0); %Neutrophils 61.6 % (42.0-75.0); Hematocrit 37.1 % (42.0-52.0); Hemoglobin 12.7 g/dL (14.0-18.0); Mean Corpuscular HGB CONC 34.2 g/dL (32.0-36.0); Mean Corpuscular Hemoglobin 33.4 pg (27.0-31.0); Mean Corpuscular Volume 97.6 fl (78.0-98.0); Mean Platelet Volume 9.6 fL (7.4-10.4); Platelet Count 296 10x3/uL (130-400); RBC Distribution Width 13.1 % (11.5-14.5); White Blood Cell (WBC) Count 10.5 10x3/uL (4.8-10.8)
[2023-11-02] MEDS ORDERED: Clindamycin/D5W 900 mg/50 ml Premix Bag ONE (07:22)
[2023-11-02 07:24] LABS: ALT (SGPT) 15 U/L (8-55); AST (SGOT) 11 U/L (5-34); Albumin 3.9 g/dL (3.5-5.0); Alkaline Phosphatase 90 U/L (40-110); Anion Gap 13 mmol/L (10-20); BUN (Urea Nitrogen) 12 mg/dL (8.4-25.7); Bilirubin, Total 0.2 mg/dL (0.2-1.2); Calc. Creatinine Clearance 95 mL/min (70-130); Calcium 8.5 mg/dL (7.8-10.44); Carbon Dioxide 28 mmol/L (22-29); Cardiac Risk 3.3 (Less than 4.5); Chloride 102 mmol/L (98-107); Cholesterol 135 mg/dl (< 200 Desired); Estimated GFR 105; Globulin 2.8 g/dL (2.4-3.5); Glucose 96 mg/dL (70-105); HDL Cholesterol 41 mg/dL (>60 Neg Risk); LDL Cholesterol, Calculated 81 mg/dL; Potassium 3.6 mmol/L (3.5-5.1); Protein, Total 6.7 g/dL (6.0-8.3); Sodium 139 mmol/L (136-145); Triglycerides 67 mg/dL (Less than 150)
[2023-11-02] MEDS ORDERED: fentaNYL PF 100 MCG/2 ML SYRINGE ONE (07:29)
[2023-11-02] MEDS ORDERED: ePHEDrine Sulfate 50 MG/10 ML VIAL ONE (07:56)
[2023-11-02] MEDS ORDERED: Aspirin 81 mg Enteric Coated Tablet PO SCH (09:00)
[2023-11-02] MEDS ORDERED: Calcium Chloride 1 GM/10 ML Abboject SYRINGE ONE (09:07)
[2023-11-02] MEDS ORDERED: Esmolol 100 MG/10 ML VIAL ONE (09:07)
[2023-11-02] MEDS ORDERED: Protamine Sulfate 50 MG/5 ML VIAL ONE (09:07)
[2023-11-02] MEDS ORDERED: Ondansetron PF 4 MG/2 ML Vial ONE (09:07)
[2023-11-02] MEDS ORDERED: Glycopyrrolate 0.2 MG/ML 5 ML SYRINGE ONE (09:07)
[2023-11-02] MEDS ORDERED: NEOSTIGMINE 3 MG/3 ML SYR 3 MG/3 ML SYRINGE ONE (09:07)
[2023-11-02] MEDS ORDERED: Vasopressin 20 UNITS/ML VIAL ONE (09:07)
[2023-11-02] MEDS ORDERED: Dexamethasone 20 MG/5 ML VIAL ONE (09:07)
[2023-11-02] MEDS ORDERED: Rocuronium Bromide 10 MG/ML (10ML VIAL) ONE (09:07)
[2023-11-02] MEDS ORDERED: PHENYLEPHRINE-NS 100 MCG/ML 10 ML SYRINGE ONE (09:07)
[2023-11-02] MEDS ORDERED: Heparin 10,000 UNITS/ 10 ML VIAL ONE (09:07)
[2023-11-02] MEDS ORDERED: fentaNYL 50 mcg/mL 1 mL Vial ONE ×2 (09:48→10:12)
[2023-11-02] MEDS ORDERED: niCARdipine 25 MG in Sodium Chloride 0.9% 250 ML 250 ML IVPB PRN (09:52)
[2023-11-02] MEDS ORDERED: Ipratropium/Albuterol 3 ML NEB NEB PRN (09:52)
[2023-11-02] MEDS ORDERED: Phenylephrine 40 MG in Sodium Chloride 0.9% 250 ML 250 ML IVPB PRN (09:52)
[2023-11-02] MEDS ORDERED: Sodium Chloride 0.9% 1,000 ML IV SCH (09:52)
[2023-11-02] MEDS ORDERED: Clindamycin/D5W 900 MG in Premix 1 BAG IVPB SCH (11:15)
[2023-11-02] MEDS: carBAMazepine 200 MG TAB PO SCH ×2 (12:51→17:16)
[2023-11-02] MEDS: Divalproex Sodium DR 500 MG TAB PO SCH ×3 (12:51→20:38)
[2023-11-02] MEDS: Enoxaparin 40 MG (0.4 mL) SYRINGE SC SCH (12:52)
[2023-11-02] MEDS: Nicotine 21 MG PATCH TD SCH (12:52)
[2023-11-02] MEDS: Acetaminophen 325 MG TAB PO PRN ×2 (12:53→19:50)
[2023-11-02] MEDS: Lisinopril 10 MG TAB PO SCH (13:46)
[2023-11-02] MEDS: Clindamycin/D5W 900 MG in Premix 1 BAG IVPB SCH ×2 (14:24→19:49)
[2023-11-02] MEDS: traMADol HCl 50 MG TAB PO PRN (17:22)
[2023-11-02] MEDS: Famotidine 20 MG TAB PO SCH (20:38)
[2023-11-02] MEDS: Atorvastatin Calcium 40 MG TAB PO SCH (20:38)
[2023-11-02] MEDS: Guaifenesin DM 100-10/5 ML UDCUP PO PRN (20:38)
[2023-11-02] MEDS: Tamsulosin HCl 0.4 MG CAP PO SCH (20:39)
[2023-11-02] MEDS: Ondansetron PF 4 MG/2 ML Vial IVP PRN (20:39)
[2023-11-03] MEDS: Clindamycin/D5W 900 MG in Premix 1 BAG IVPB SCH ×2 (02:00→08:14)
[2023-11-03] MEDS: traMADol HCl 50 MG TAB PO PRN ×4 (02:53→21:39)
[2023-11-03] MEDS: Acetaminophen 325 MG TAB PO PRN ×2 (02:54→11:55)
[2023-11-03 04:59] LABS: #Monocytes 0.9 thou/uL (0.11-0.59); #Neutrophils 11.2 thou/uL (1.40-6.50); %Basophils 0.1 % (0.0-1.0); %Lymphocytes 14.6 % (21.0-51.0); %Monocytes 6.6 % (0.0-10.0); %Neutrophils 78.4 % (42.0-75.0); Hematocrit 34.7 % (42.0-52.0); Hemoglobin 11.9 g/dL (14.0-18.0); Mean Corpuscular HGB CONC 34.3 g/dL (32.0-36.0); Mean Corpuscular Volume 96.1 fl (78.0-98.0); Mean Platelet Volume 9.8 fL (7.4-10.4); Platelet Count 272 10x3/uL (130-400); RBC Distribution Width 13.1 % (11.5-14.5); Red Blood Cell (RBC) Count 3.61 mill/uL (4.70-6.10); White Blood Cell (WBC) Count 14.3 10x3/uL (4.8-10.8)
[2023-11-03 05:31] LABS: Anion Gap 12 mmol/L (10-20); BUN (Urea Nitrogen) 12 mg/dL (8.4-25.7); Calc. Creatinine Clearance 101 mL/min (70-130); Calcium 9.2 mg/dL (7.8-10.44); Carbon Dioxide 27 mmol/L (22-29); Chloride 102 mmol/L (98-107); Estimated GFR 107; Glucose 106 mg/dL (70-105); Magnesium 1.9 mg/dL (1.6-2.6); Sodium 137 mmol/L (136-145)
[2023-11-03] MEDS: Aspirin Chewable 81 MG TAB PO SCH (08:13)
[2023-11-03] MEDS: Famotidine 20 MG TAB PO SCH ×2 (08:13→21:38)
[2023-11-03] MEDS: Enoxaparin 40 MG (0.4 mL) SYRINGE SC SCH (08:13)
[2023-11-03] MEDS: Divalproex Sodium DR 500 MG TAB PO SCH ×3 (08:13→21:38)
[2023-11-03] MEDS: carBAMazepine 200 MG TAB PO SCH ×2 (08:13→16:29)
[2023-11-03] MEDS: ALPRAZolam 0.25 MG TAB PO SCH ×4 (08:28→21:38)
[2023-11-03] MEDS: Tamsulosin HCl 0.4 MG CAP PO SCH (21:38)
[2023-11-03] MEDS: Atorvastatin Calcium 40 MG TAB PO SCH (21:38)
[2023-11-04] MEDS: traMADol HCl 50 MG TAB PO PRN (09:08)
[2023-11-04] MEDS: Divalproex Sodium DR 500 MG TAB PO SCH ×3 (09:09→20:10)
[2023-11-04] MEDS: carBAMazepine 200 MG TAB PO SCH ×2 (09:09→18:10)
[2023-11-04] MEDS: Aspirin Chewable 81 MG TAB PO SCH (09:09)
[2023-11-04] MEDS: Famotidine 20 MG TAB PO SCH ×2 (09:09→20:09)
[2023-11-04] MEDS: ALPRAZolam 0.25 MG TAB PO SCH ×4 (09:10→20:09)
[2023-11-04] MEDS: Enoxaparin 40 MG (0.4 mL) SYRINGE SC SCH (09:10)
[2023-11-04] MEDS: Guaifenesin DM 100-10/5 ML UDCUP PO PRN (09:11)
[2023-11-04] MEDS: Ondansetron PF 4 MG/2 ML Vial IVP PRN (09:11)
[2023-11-04] MEDS: Atorvastatin Calcium 40 MG TAB PO SCH (20:09)
[2023-11-04] MEDS: Tamsulosin HCl 0.4 MG CAP PO SCH (20:09)
[2023-11-05] MEDS: traMADol HCl 50 MG TAB PO PRN ×2 (02:55→08:57)
[2023-11-05] MEDS: Acetaminophen 325 MG TAB PO PRN (06:17)
[2023-11-05 08:20] VITALS: BP 111/74; TEMP 97.8
[2023-11-05] MEDS: Divalproex Sodium DR 500 MG TAB PO SCH (08:56)
[2023-11-05] MEDS: Famotidine 20 MG TAB PO SCH (08:56)
[2023-11-05] MEDS: carBAMazepine 200 MG TAB PO SCH (08:56)
[2023-11-05] MEDS: Aspirin Chewable 81 MG TAB PO SCH (08:57)
[2023-11-05] MEDS: ALPRAZolam 0.25 MG TAB PO SCH (08:57)
[2023-11-05] MEDS: Guaifenesin DM 100-10/5 ML UDCUP PO PRN (08:58)
[2023-11-05] MEDS: Enoxaparin 40 MG (0.4 mL) SYRINGE SC SCH (08:59)
== END 2023-11-05 10:55 | disposition home or self-care (01) | DRG 37 ==
LOC: ERS 03:50 → EEVIPCON 06:06 → ERHOLD 06:06 → 2SE 14:40 → CCU 11-02 08:19 → 2SE 11-03 21:07
PROVIDERS: ADMIT Student in an Organized Health Care Education/Training Program; ATTEND Family Medicine
PROC: 03CK0ZZ Extirpation of Matter from Right Internal Carotid Artery, Open Approach (ICD-10-PCS; principal; 2023-11-02)
PROC: 03CM0ZZ Extirpation of Matter from Right External Carotid Artery, Open Approach (ICD-10-PCS; 2023-11-02)
PROC: 03UK0KZ Supplement Right Internal Carotid Artery with Nonautologous Tissue Substitute, Open Approach (ICD-10-PCS; 2023-11-02)
PROC: 03UM0KZ Supplement Right External Carotid Artery with Nonautologous Tissue Substitute, Open Approach (ICD-10-PCS; 2023-11-02)
PROC: 07B10ZX Excision of Right Neck Lymphatic, Open Approach, Diagnostic (ICD-10-PCS; 2023-11-02)
DX: I65.21 Occlusion and stenosis of right carotid artery (principal); U07.1 COVID-19; I69.354 Hemiplegia and hemiparesis following cerebral infarction affecting left non-dominant side; I10 Essential (primary) hypertension; G43.909 Migraine, unspecified, not intractable, without status migrainosus; F17.210 Nicotine dependence, cigarettes, uncomplicated; E78.5 Hyperlipidemia, unspecified; F31.9 Bipolar disorder, unspecified; I08.1 Rheumatic disorders of both mitral and tricuspid valves; N40.0 Benign prostatic hyperplasia without lower urinary tract symptoms; R27.0 Ataxia, unspecified; Z90.49 Acquired absence of other specified parts of digestive tract; Z98.890 Other specified postprocedural states; Z88.1 Allergy status to other antibiotic agents; Z88.0 Allergy status to penicillin; Z88.2 Allergy status to sulfonamides; Z88.8 Allergy status to other drugs, medicaments and biological substances; Z79.899 Other long term (current) drug therapy; Z79.82 Long term (current) use of aspirin
CPT/HCPCS: 36415; 70450; 70496; 70498; 70551; 71045; 80048; 80053; 80061; 80307; 83735; 84484; 85025; 85610; 85730; 86140; 88305; 88341; 88342; 93005; 93306; 96361; 96374; 96375; C1768; J0171; J0665; J1100; J1200; J1642; J1644; J1650; J2405; J2704; J2720; J2920; J3010; J3490; Q0162; Q9967; S0028

== ENCOUNTER 2023-11-12 23:03 | Emergency (ER) | payer OTHER | END 2023-11-13 00:02 | LOC: ERS 23:03 | DX: M25.571 Pain in right ankle and joints of right foot (principal); Z55.6 Problems related to health literacy | CPT/HCPCS: 71045 ==

== ENCOUNTER 2023-11-13 01:16 | Emergency (ER) | payer OTHER | END 2023-11-13 03:40 | disposition home or self-care (01) | LOC: ERS 01:16 | DX: Z03.89 Encounter for observation for other suspected diseases and conditions ruled out (principal); W19.XXXA Unspecified fall, initial encounter; M25.571 Pain in right ankle and joints of right foot; Z55.6 Problems related to health literacy | CPT/HCPCS: 70450; 71045; 72125 ==